=== PATIENT | male | born 1940 | race American Indian/Alaskan Native ===

== ENCOUNTER 2020-03-02 14:25 | Emergency (ER) | payer MEDICARE, OTHER ==
[2020-03-02] MEDS ORDERED: Sodium Chloride 0.9% 10 ML Syringe FLUSH PRN (14:32)
[2020-03-02] MEDS ORDERED: Sodium Chloride 0.9% 2.5 ML Syringe FLUSH PRN (14:32)
[2020-03-02] MEDS ORDERED: Sodium Chloride 0.9% 1,000 ML IV ONE (14:32)
[2020-03-02] MEDS ORDERED: Octyl 2-Cyanoacrylate 1 APPLIC TUBE TOP ONE (14:33)
--- NOTE | 2020-03-02 14:41 | EDM.PDOC ---
ED HPI GENERAL MEDICAL PROBLEM - General Chief Complaint: Head Injury Time Seen by Provider: 03/02/20 14:25 Source of Information: Reports: Patient History Limitations: Reports: No Limitations - History of Present Illness INITIAL COMMENTS - FREE TEXT/NARRATIVE: History of present illness: 79-year-old male presenting with facial injury/head injury on anticoagulation, 30 minutes prior to arrival here. Patient said he tripped over his foot and fell onto his face/nose and has a 2 cm laceration over the bridge of his nose that bled but has now stopped after Band-Aid was applied. He had no loss of consciousness. He has no headache or facial pain nor any neck pain. Did not hit or injure anything else. Review of systems: As per history of present illness and below otherwise all systems reviewed and negative. Past medical history: As per history of present illness and as reviewed below otherwise noncontributory. Hypertension, DVT Surgical history: As per history of present illness and as reviewed below otherwise noncontributory. Denies any surgeries ever Social history: No reported history of drug or alcohol abuse. Never smoker Family history: As per history of present illness and as reviewed below otherwise noncontributory. Physical exam: GEN: no acute distress, well appearing HEENT: 2 cm laceration over the bridge of the nose that is not actively bleeding after Band-Aid was placed, no facial trauma, no nasal septal hematoma, no oral or nasal pharyngeal blood, normocephalic, mucous membranes slightly dry. Pupils are 2 mm and reactive bilaterally, EOMI, no periorbital tenderness or crepitus. Neck: supple, nontender, trachea midline. No midline tenderness, no bony step- offs Lungs: No respiratory distress. No chest wall tenderness Heart: RRR Abdomen: Soft, nondistended, nontender. Several old healing pinpoint ecchymoses over abdomen, patient denies any tenderness in this area nor any pain or injected medications Back: nontender, no midline tenderness throughout the thoracic or lumbar spine. No signs of trauma over the back. Extremities: Atraumatic. Neurovascularly intact. Pelvis stable. Full range of motion both lower and upper extremities. No tenderness diffusely over both lower and upper extremities. Atraumatic appearance. Neuro: Awake, alert, oriented. Neuro Exam nonfocal. Skin: warm, dry, no lesions, laceration as above. Ecchymosis as above. Diagnostics: Labs, CT brain/C-spine Therapeutics: MDM: Impression: Plan: Definitive disposition and diagnosis as appropriate pending reevaluation and review of above. - Related Data Allergies Allergy/AdvReac Type Severity Reaction Status Date / Time doxycycline Allergy Hives Verified 03/02/20 14:45 Home Meds: Home Meds Acid Reflux Med 1 tab PO DAILY 10/22/13 [History] Tamsulosin [Tamsulosin 24 Hr] 1 tab PO DAILY 10/22/13 [History] Aspirin [Halfprin] 1 tab PO DAILY 05/19/15 [History] Lansoprazole [Prevacid] 1 tab PO DAILY 05/19/15 [History] Simvastatin [Zocor] 1 tab PO DAILY 05/19/15 [History] Telmisartan [Micardis] 1 tab PO DAILY 05/19/15 [History] Warfarin [Coumadin] 1 tab PO ASDIRECTED 05/19/15 [History] Past Medical History Cardiovascular History: Reports: High Cholesterol, Hypertension, Pacemaker Oncologic (Cancer) History: Reports: Prostate - Infectious Disease History Infectious Disease History: Reports: Chicken Pox, Measles, Mumps Social & Family History - Family History Family Medical History: Noncontributory - Caffeine Use Caffeine Use: Reports: None ED ROS GENERAL - Review of Systems Review Of Systems: See Below (See HPI) ED EXAM, HEAD INJURY - Physical Exam Exam: See Below (See HPI) ED LACERATION/WOUND & RICH PROC - Laceration/Wound Repair Nose Lac/wound length in cm: 2 Appearance: Superficial Skin Prep: Saline Saline irrigation (cc's): 10 Exploration/Debridement/Repair: Wound Explored, No Foreign Material Found Closed with: Dermabond Course - Vital Signs Text/Narrative:: Patient with head injury on Coumadin, nasal laceration, CT brain and C-spine negative for any acute traumatic injury. INR slightly elevated, 4.3, patient already took his Coumadin today. Will hold Coumadin, however no signs of bleeding on physical exam, on CT scans, and nasal laceration has already stopped bleeding. Will repair with Dermabond. Patient asymptomatic on reassessment. Will discharge. Last Recorded V/S: Last Vital Signs Temp 96.7 F L 03/02/20 14:25 Pulse 82 03/02/20 14:25 Resp 16 03/02/20 14:25 BP 165/78 H 03/02/20 14:25 Pulse Ox 97 03/02/20 14:25 - Orders/Labs/Meds Orders: Active Orders 24 hr Category Date Time Status Sodium Chloride 0.9% [Saline Flush] Med 03/02/20 14:32 Active 10 ml FLUSH ASDIRECTED PRN Sodium Chloride 0.9% [Saline Flush] Med 03/02/20 14:32 Active 2.5 ml FLUSH ASDIRECTED PRN Saline Lock Insert [OM.PC] Stat Oth 03/02/20 14:32 Ordered Medication Orders Sodium Chloride (Saline Flush) 10 ml FLUSH ASDIRECTED PRN PRN Reason: Keep Vein Open Last Admin: 03/02/20 15:16 Dose: 10 ml Documented by: [id number] Sodium Chloride (Saline Flush) 2.5 ml FLUSH ASDIRECTED PRN PRN Reason: Keep Vein Open Last Admin: 03/02/20 15:16 Dose: 2.5 ml Documented by: [id number] Labs: Laboratory Tests 03/02/20 03/02/20 03/02/20 Range/Units 14:32 14:32 14:32 WBC 6.56 (4.0-11.0) K/uL RBC 4.31 L (4.50-5.90) M/uL Hgb 13.4 (13.0-17.0) g/dL Hct 40.5 (38.0-50.0) % MCV 94.0 (80.0-98.0) fL MCH 31.1 (27.0-32.0) pg MCHC 33.1 (31.0-37.0) g/dL RDW Std Deviation 47.5 (28.0-62.0) fl RDW Coeff of Jigna 14 (11.0-15.0) % Plt Count 241 (150-400) K/uL MPV 9.60 (7.40-12.00) fL Neut % (Auto) 46.8 L (48.0-80.0) % Lymph % (Auto) 38.0 (16.0-40.0) % [place] % (Auto) 9.9 (0.0-15.0) % Eos % (Auto) 4.7 (0.0-7.0) % Baso % (Auto) 0.6 (0.0-1.5) % Neut # (Auto) 3.1 (1.4-5.7) K/uL Lymph # (Auto) 2.5 H (0.6-2.4) K/uL [place] # (Auto) 0.7 (0.0-0.8) K/uL Eos # (Auto) 0.3 (0.0-0.7) K/uL Baso # (Auto) 0.0 (0.0-0.1) K/uL Nucleated RBC % 0.0 /100WBC Nucleated RBCs # 0 K/uL INR 4.39 Sodium 139 (136-148) mmol/L Potassium 4.0 (3.5-5.1) mmol/L Chloride 103 (98-107) mmol/L Carbon Dioxide 23.7 (21.0-32.0) mmol/L BUN 11 (7.0-18.0) mg/dL Creatinine 1.3 (0.8-1.3) mg/dL Est Cr Clr Drug Dosing 45.32 mL/min Estimated GFR (MDRD) 53.1 ml/min Glucose 131 H (74-106) mg/dL Calcium 8.9 (8.5-10.1) mg/dL Meds: Medications Generic Name Dose Route Start Last Admin Trade Name Freq PRN Reason Stop Dose Admin Sodium Chloride 10 ml 03/02/20 14:32 03/02/20 15:16 Saline Flush FLUSH 10 ml ASDIRECTED PRN Administration Keep Vein Open Sodium Chloride 2.5 ml 03/02/20 14:32 03/02/20 15:16 Saline Flush FLUSH 2.5 ml ASDIRECTED PRN Administration Keep Vein Open Discontinued Medications Generic Name Dose Route Start Last Admin Trade Name Freq PRN Reason Stop Dose Admin Sodium Chloride 1,000 mls @ 999 mls/hr 03/02/20 14:32 03/02/20 15:16 Normal Saline IV 03/02/20 15:32 999 mls/hr .Bolus ONE Administration Octyl Cyanoacrylate 1 applic 03/02/20 14:33 03/02/20 15:15 Dermabond Mini TOP 03/02/20 14:34 1 applic ONETIME ONE Administration - Re-Assessments/Exams Free Text/Narrative Re-Assessment/Exam: 03/02/20 15:30 Discussed results with patient. Elevated INR level and need for follow-up with his PCP, he will call his doctor Thursday. Discussed plan to hold Coumadin tomorrow. Wound sutured by myself. He is feeling well. Stable for discharge. Departure - Departure Time of Disposition: 15:49 Disposition: Home, Self-Care 01 Clinical Impression: Elevated INR Closed head injury Qualifiers: Encounter type: initial encounter Qualified Code(s): S09.90XA - Unspecified injury of head, initial encounter Nasal laceration Qualifiers: Encounter type: initial encounter Qualified Code(s): S01.21XA - Laceration without foreign body of nose, initial encounter - Discharge Information Instructions: How to Use Cold Therapy, [id number], Head Injury, Adult, [id number], Laceration Care, Adult, [id number], Sutures, [place], or Ad hesive Wound Closure, [id number], Facial Laceration, [id number] Referrals: PCP,None [Primary Care Provider] - Betty Palacio MD [Physician] - 2 Days Forms: ED Department Discharge Additional Instructions: You had a head injury today and sustained a laceration of your nose. We did a CAT scan of your head and neck and we do not see any bleeding or fractures on there. However please closely monitor your symptoms and have a family member look over you and wake you up several times tonight. If you become lethargic, have difficulty speaking, have a seizure, have recurrent vomiting, have severe headache, or of any other concerning symptoms, please return to the emergency department immediately. The INR level, which is the test for your Coumadin medication level does show an elevation, it is 4.3 today. This is higher than it should be. Please do not take your Coumadin tomorrow (you mentioned that you had already taken it today, however if you have not yet taken it today do not take it). Please discuss this with your primary care physician as soon as possible and you will need to have your INR rechecked within 2 to 3 days. We used Dermabond skin glue to repair the laceration on your nose. This will start to break down on its own over the next 5 to 7 days. Please do not put any lotion or ointment over this as it will prematurely break down the skin glue. The following information is given to patients seen in the emergency department who are being discharged to home. This information is to outline your options for follow-up care. We provide all patients seen in our emergency department with a follow-up referral. The need for follow-up, as well as the timing and circumstances, are variable depending upon the specifics of your emergency department visit. If you don't have a primary care physician on staff, we will provide you with a referral. We always advise you to contact your personal physician following an emergency department visit to inform them of the circumstance of the visit and for follow-up with them and/or the need for any referrals to a consulting specialist. The emergency department will also refer you to a specialist when appropriate. This referral assures that you have the opportunity for follow-up care with a specialist. All of these measure are taken in an effort to provide you with optimal care, which includes your follow-up. Under all circumstances we always encourage you to contact your private physician who remains a resource for coordinating your care. When calling for follow-up care, please make the office aware that this follow-up is from your recent emergency room visit. If for any reason you are refused follow-up, please contact the [facility] Department at and asked to speak to the emergency department charge nurse. Sepsis Event Note (ED) - Focused Exam Vital Signs: Vital Signs Temp Pulse Resp BP Pulse Ox 03/02/20 14:25 96.7 F L 82 16 165/78 H 97 - My Orders Last 24 Hours: My Active Orders 03/02/20 14:32 Sodium Chloride 0.9% [Saline Flush] 10 ml FLUSH ASDIRECTED PRN Sodium Chloride 0.9% [Saline Flush] 2.5 ml FLUSH ASDIRECTED PRN Saline Lock Insert [OM.PC] Stat - Assessment/Plan Last 24 Hours: My Active Orders 03/02/20 14:32 Sodium Chloride 0.9% [Saline Flush] 10 ml FLUSH ASDIRECTED PRN Sodium Chloride 0.9% [Saline Flush] 2.5 ml FLUSH ASDIRECTED PRN Saline Lock Insert [OM.PC] Stat
[2020-03-02 15:07] LABS: CARBON DIOXIDE,CO2 23.7 mmol/L (21.0-32.0)
--- NOTE | 2020-03-02 15:20 | CT ---
CT cervical spine Technique: Multiple axial sections were obtained from above C1 inferiorly to the bottom of T3. Reconstructed sagittal and coronal images were obtained. Comparison: No prior cervical spine imaging is available. Findings: Degenerative change is noted between the dens and anterior arch of C1. Severe disc space narrowing is noted at C4-C5, C5-C6 and C6-C7. Mild posterior disc space narrowing noted at C7-T1. Scattered degenerative change is noted throughout the cervical spine within the apophyseal joints. Ligamentum nuchal calcification is seen. Scattered anterior osteophytes are seen. Moderate right-sided neural foraminal stenosis is noted at C3-C4. Mild left-sided neural foraminal stenosis is noted at C4-C5. Mild to moderate left-sided neural foraminal stenosis is noted C5-C6. Moderate to severe bilateral neural foraminal stenosis is noted at C6-C7. Posterior osteophytes and diffuse posterior disc bulging at C5-C6 causing moderate central canal stenosis. Posterior disc bulge at C4-C5 causing moderate central canal stenosis. No discrete fracture or acute subluxation is seen. Impression: 1. Osteoporosis and degenerative change. 2. Nothing acute is appreciated on CT study of the cervical spine. Diagnostic code #2 Study was dictated in MDT
--- NOTE | 2020-03-02 15:23 | CT ---
Head CT Technique: Multiple axial sections through the brain were obtained. Intravenous contrast was not utilized. Comparison: No prior intracranial imaging is available. Findings: Ventricles along with basal cisterns and sulci over the convexities are moderately prominent. 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 Minimal areas of diminished density are noted within the periventricular white matter. No evidence of intracranial hemorrhage. No midline shift or mass effect is seen. Atherosclerotic calcification is seen within the carotid siphon and within the vertebral vessels. Bone window settings shows no acute calvarial finding. Visualized mastoid sinuses show nothing acute. Mild mucosal thickening is seen within the right sphenoid and within the right ethmoid sinuses which is likely pre-existing. Impression: 1. Senescent change as noted above. 2. Mucosal thickening within the paranasal sinus believed to be pre-existing and chronic. 3. No acute intracranial abnormality is appreciated. Diagnostic code #2 Study was dictated in MDT
[2020-03-02 16:07] VITALS: BP 126/63; PULSE 70
== END 2020-03-02 16:05 | disposition home or self-care (01) ==
LOC: MW.ED 14:25
DX: S09.90XA Unspecified injury of head, initial encounter (principal); S01.21XA Laceration without foreign body of nose, initial encounter; R79.1 Abnormal coagulation profile; E78.00 Pure hypercholesterolemia, unspecified; I10 Essential (primary) hypertension; Z79.82 Long term (current) use of aspirin; Z79.899 Other long term (current) drug therapy; Z88.1 Allergy status to other antibiotic agents; N42.9 Disorder of prostate, unspecified; Z79.01 Long term (current) use of anticoagulants; W01.0XXA Fall on same level from slipping, tripping and stumbling without subsequent striking against object, initial encounter
CPT/HCPCS: 12011; 36415; 70450; 72125; 80048; 85025; 85610; 96360; 99284; A9270; J7030; 99282

== ENCOUNTER 2023-11-25 13:51 | Emergency (ER) | payer MEDICARE, OTHER ==
[2023-11-25 14:03] VITALS: BP 105/52; PULSE 78
== END 2023-11-25 16:38 | disposition home or self-care (01) ==
LOC: MW.ED 13:51
DX: S61.501A Unspecified open wound of right wrist, initial encounter (principal); I10 Essential (primary) hypertension; E78.00 Pure hypercholesterolemia, unspecified; Z75.8 Other problems related to medical facilities and other health care; Z88.8 Allergy status to other drugs, medicaments and biological substances; Z79.82 Long term (current) use of aspirin; Z79.01 Long term (current) use of anticoagulants; Z79.899 Other long term (current) drug therapy; W01.0XXA Fall on same level from slipping, tripping and stumbling without subsequent striking against object, initial encounter; Y93.01 Activity, walking, marching and hiking
CPT/HCPCS: 73110-26-RT; 73110-RT; 99283